=== PATIENT | female | born 1980 | race Two or more races ===

== ENCOUNTER → 2020-10-11 | Outpatient (CLI) | payer BC | END | disposition home or self-care (01) | LOC: LAB 08:35 | PROVIDERS: ATTEND Internal Medicine | DX: R94.7 Abnormal results of other endocrine function studies (principal); R79.82 Elevated C-reactive protein (CRP) | CPT/HCPCS: 36415; 82533; 86141 ==

== ENCOUNTER 2024-06-09 00:42 | Inpatient (IN) | payer BC, OTHER ==
[~2024-06-09] VITALS: Ht 160 cm; Wt 72.0 kg
[2024-06-09] MEDS: ONDANSETRON ODT 4 MG TAB PO ONE (01:53)
[2024-06-09] MEDS: MORPHINE SULFATE INJ 2 MG/ml SYRG IM ONE (01:56)
--- NOTE | 2024-06-09 01:59 | ED.PDOC ---
GI ASSESSMENT HPI Comments 44-YEAR-OLD FEMALE PRESENTS TO ER WITH COMPLAINTS OF RIGHT FLANK PAIN X1 DAY. PATIENT REPORTS THAT SHE WOKE UP WITH SUDDEN ONSET OF RIGHT FLANK PAIN AND NAUSEA/VOMITING AT 11:00 P.M. PRIOR TO ARRIVAL TO ER. SHE RATES HER CURRENT PAIN A 10/10 LOCALIZED TO RIGHT FLANK WITHOUT RADIATION. DENIES USE OF MEDICATIONS FOR CURRENT SYMPTOMS. PATIENT PRESENTS TO ER AMBULATORY ON ARRIVAL, IN MODERATE DISTRESS. 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 Social History Smoker: Non-Smoker Alcohol: Denies ETOH Use Drugs: Denies Drug Use Lives In: Home Constitutional: denies: chills, diaphoresis, fatigue, fever, malaise, sweats, weakness, others EENTM: denies: blurred vision, double vision, ear bleeding, ear discharge, ear drainage, ear pain, ear ringing, eye pain, eye redness, hearing loss, mouth pain, mouth swelling, nasal discharge, nose bleeding, nose congestion, nose pain, photophobia, tearing, throat pain, throat swelling, voice changes, others Respiratory: denies: cough, hemoptysis, orthopnea, SOB at rest, shortness of breath, SOB with excertion, stridor, wheezing, others Cardiovascular: denies: chest pain, dizzy spells, diaphoresis, Dyspnea on exertion, edema, irregular heart beat, left arm pain, lightheadedness, palpitations, PND, syncope, others Gastrointestinal: reports: others ( STATED IN HPI) Genitourinary: denies: abnormal vagina bleeding, burning, dyspareunia, dysuria, flank pain, frequency, hematuria, incontinence, pain, , vagina discharge, urgency, others Neurological: denies: dizziness, fainting, headache, left sided numbness, left sided weakness, numbness, paresthesia, pre-existing deficit, right sided numbness, right sided weakness, seizure, speech problems, tingling, tremors, weakness, others Musculoskeletal: denies: back pain, gout, joint pain, joint swelling, muscle pain, muscle stiffness, neck pain, others Integumetry: denies: bruises, change in color, change in hair/nails, dryness, laceration, lesions, lumps, rash, wounds, others Allergic/Immunocompromised: denies: Difficulty Healing, Frequent Infections, Hives, Itching, others Hematologic/Lymphatic: denies: anemia, blood clots, easy bleeding, easy bruising, swollen glands, others Endocrine: denies: excessive hunger, excessive sweating, excessive thirst, excessive urination, flushing, intolerance to cold, intolerance to heat, unexplained weight gain, unexplained weight loss, others Psychiatric: denies: anxiety, bipolar disorder, depression, hopeless, panic disorder, schizophrenia, sleepless, suicidal, others Physical Exam General Appearance: Moderate Distress (DUE TO RIGHT FLANK PAIN) HEENT: PERRL/EOMI Neck: Full Range of Motion, Non-Tender, Normal Respiratory: Chest Non-Tender, Lungs Clear, No Accessory Muscle Use, No Respiratory Distress, Normal Breath Sounds Cardiovascular: No Murmur, No Gallop, Regular Rate/Rhythm Breast Exam: Deferred Gastrointestinal: Non Tender, No Pulsatile Mass, Soft Genitalia: Deferred Pelvic: Deferred Rectal: Deferred Extremities: Normal capillary refill, Normal range of motion Musculoskeletal : Extremity Location: Back (TTP TO RIGHT FLANK NOTED. NO CVA TENDERNESS NOTED BILATERALLY) Neurologic: Alert, air commodore II-XII nml as Tested, No Motor Deficits, No Sensory Deficits Cerebellar Function: Normal Reflexes: Normal Skin: Dry, Normal Color, Warm Lymphatic: No Adenopathy Was a procedure done? Was a procedure done?: No Sedation Sedation?: No GI differential Dx Differential Diagnosis: Ischemic Bowel, Trauma intraabdominal, UTI, Renal Failure, Other (PYELONEPHRITIS) X-Ray, Labs, Meds, VS Vital Signs Date Time Temp Pulse Resp B/P (MAP) Pulse Ox O2 Delivery O2 Flow Rate FiO2 06/09/24 02:37 61 17 140/85 06/09/24 01:56 72 18 137/99 06/09/24 01:50 97.7 72 18 137/99 (112) 100 97.7 06/09/24 00:47 98.2 89 20 144/96 (112) 100 06/09/24 00:47 98.2 89 20 144/96 (112) 100 98.2 06/09/24 00:47 Room Air Lab Test 06/09/24 02:30 06/09/24 00:50 Range/Units White Blood Count 10.1 4.4-10.8 10^3/uL Red Blood Count 5.27 H 4.0-5.20 10^6/uL Hemoglobin 14.8 12.2-16.2 g/dL Hematocrit 45.0 36.0-46.0 % Mean Corpuscular Volume 85.3 80.0-100.0 fL Mean Corpuscular Hemoglobin 28.1 28.0-32.0 pg Mean Corpuscular Hemoglobin Concent 32.9 32.0-36.0 g/dL Red Cell Distribution Width 15.2 H 11.8-14.3 % Platelet Count 255 140-450 10^3/uL Mean Platelet Volume 8.6 6.9-10.8 fL Neutrophils (%) (Auto) 80.8 H 37.0-80.0 % Lymphocytes (%) (Auto) 10.3 10.0-50.0 % Monocytes (%) (Auto) 7.8 0.0-12.0 % Eosinophils (%) (Auto) 0.7 0.0-7.0 % Basophils (%) (Auto) 0.4 0.0-2.0 % Neutrophils # (Auto) 8.1 1.6-8.6 10 ^3/uL Lymphocytes # (Auto) 1.0 0.4-5.4 10 ^3/uL Monocytes # (Auto) 0.8 0-1.3 10 ^3/uL Eosinophils # (Auto) 0.1 0-0.8 10 ^3/uL Basophils # (Auto) 0 0-0.2 10 ^3/uL Nucleated Red Blood Cells 0.0 % Sodium Level 142 136-145 mmol/L Potassium Level 4.4 3.5-5.1 mmol/L Chloride Level 108 H 98-107 mmol/L Carbon Dioxide Level 24 20-31 mmol/L Anion Gap 10 5-15 Blood Urea Nitrogen 21 9-23 mg/dL Creatinine 0.96 0.550-1.02 mg/dL Glomerular Filtration Rate Calc 74 >90 mL/min BUN/Creatinine Ratio 21.9 H 10.0-20.0 Serum Glucose 113 H 74-106 mg/dL Calcium Level 10.8 H 8.7-10.4 mg/dL Lipase 54 H 12-53 U/L Urine Color Light-yellow Yellow Urine Clarity Clear Clear Urine pH 7.0 5.0-9.0 Urine Specific [place] 1.022 1.001-1.035 Urine Protein Negative Negative Urine Ketones 2+ H Negative Urine Blood Negative Negative /uL Urine Nitrite Negative Negative Urine Bilirubin Negative Negative Urine Urobilinogen Normal Negative mg/dL Urine Leukocyte Esterase Negative Negative /uL Urine RBC 5 0 - 4 /hpf Urine Microscopic WBC 4 0-5 /HPF Urine Squamous Epithelial Cells Few <5 /hpf Urine Bacteria None seen None Seen /hpf Urine Mucus Few None Seen Urine Glucose Normal Normal mg/dL Current Medications Medications (Trade) Dose Ordered Sig/Oscar Route Start Time Stop Time Status Last Admin Morphine Sulfate 4 mg ONCE ONCE IM 06/09/24 02:00 06/09/24 02:01 DC 06/09/24 01:56 Ondansetron HCl (Zofran Po) 4 mg ONCE ONCE PO 06/09/24 02:00 06/09/24 02:01 DC 06/09/24 01:53 Sodium Chloride 1,000 ml @ 1,000 mls/hr Q1H ONCE IV 06/09/24 02:00 06/09/24 02:59 DC 06/09/24 02:00 PATIENT: PERRY NEWBY ACCT: [id number] UNIT: [id number] : 1980 LOC: ER ROOM / BED: / AGE / SEX: 44 / F ADM STATUS: REG ER SERVICE [id number] ORDERING PHYSICIAN: TABBY MARTINO PROCEDURE(s): ABPL - CT AB PEL WO CON-NO ORAL OR IV REASON: RIGHT FLANK PAIN ORDER NUMBER(s): [id number], ACCESSION NUMBER(s): [id number] Exam: CT CT AB PEL WO CON-NO ORAL OR IV History: RIGHT FLANK PAIN Comparison Study: None available at time of dictation. TECHNIQUE: Multidetector CT of the abdomen was performed from lung bases to pubic symphysis. Imaging was performed without IV contrast. Axial, coronal and sagittal multiplanar reformats were obtained from the axial data set by the technologist. Radiation optimization: All CT scans at this facility use at least one of these dose optimization techniques: automated exposure control mA and/or kV adjustment per patient size (includes targeted exams where dose is matched to clinical indication) or iterative reconstruction. Radiation Dose Information: CT Dose: CTDI volume is 17.2 mGy. Dose-length product is 914.57 mGy*cm FINDINGS: Evaluation of solid organs is limited due to lack of intravenous contrast use. Findings: Imaged portions of the lung bases appear unremarkable. Liver, gallbladder, spleen and pancreas appear unremarkable. Postsurgical changes of the stomach are noted. The adrenal glands appear unremarkable. There is edema of the right kidney with severe right hydronephrosis and hydroureter secondary to 2 adjacent calculi measuring 1.1 and 0.3 cm just proximal to the ureterovesicular junction multiple nonobstructing bilateral renal calculi are present measuring up to 0.6 cm in the left upper pole. No left hydronephrosis. There is no evidence of bowel obstruction or focal bowel wall thickening. There is a fat and fluid containing ventral hernia measuring 6.9 cm with 1.9 cm neck. there is intrauterine contraceptive device. No significant free fluid. No free air or adenopathy. 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 IMPRESSION: 1. 2 obstructing calculi in the distal right ureter just proximal to the ureterovesicular junction resulting in severe right hydronephrosis, hydroureter, and renal edema. Multiple additional nonobstructing bilateral renal calculi. 2. 6.9 cm ventral abdominal fat containing hernia. ATED BY: LISA GO MD DICTATED DATE/TIME: 06/09/24307 SIGNED BY: LISA GO MD SIGNED DATE/TIME: 06/09/24307 CC: CBC REVIEWED WITHOUT ANY SIGNIFICANT ABNORMALITIES BMP REVIEWED-GFR 74, CREATININE 0.96 LIPASE REVIEWED -24 URINALYSIS REVIEWED WITHOUT ANY SIGNIFICANT ABNORMALITIES CT ABDOMEN/PELVIS WITHOUT CONTRAST REVIEWED HEP-LOCK IV ORDERED NS 1 L IV ORDERED MORPHINE 4 MG IM ORDERED ZOFRAN 4 MG P.O. ORDERED FLOMAX .4 MG P.O. ORDERED PATIENT REPORTED IMPROVEMENT IN SYMPTOMS AND RESTING COMFORTABLY AT BEDSIDE PATIENT ADMITTED TO HOSPITALIST FOR SEVERE RIGHT-SIDED HYDRONEPHROSIS/RIGHT SIDED RENAL CALCULI Images Reviewed?: Images reviewed and evaluated by me Time of 1ST Reevaluation: 01:52 Reevaluation 1ST: N/A Time of 2ND Reevaluation: 03:30 Reevaluation 2ND: Improved Patient Education/Counseling: Diagnosis, Treatment, Prognosis, Need For Follow Up Family Education/Counseling: No Family Present Departure 1 Departure Time of Disposition: 03:32 Impression: Primary Impression: Hydronephrosis Qualified Codes: N13.30 - Unspecified hydronephrosis Additional Impression: Renal calculus, right Disposition: 09 ADMITTED INPATIENT Condition: Stable Critical Care Note Critical Care Time?: No Stability Stability form required: No Heart Score Heart Score: Heart Score Response (Comments) Value History N/A 0 EKG N/A 0 Age N/A 0 Risk Factors N/A 0 Troponin N/A 0 Total 0 TABBY MARTINO Jun 09, 2024 01:59
[2024-06-09] MEDS: SODIUM CHLORIDE 0.9% 1,000 ML IV ONE (02:00)
[2024-06-09 03:05] LABS: Basophils # (auto) 0 10 ^3/uL (0-0.2); Basophils % (auto) 0.4 % (0.0-2.0); Eosinophils # (auto) 0.1 10 ^3/uL (0-0.8); Eosinophils % (auto) 0.7 % (0.0-7.0); Hemoglobin 14.8 g/dL (12.2-16.2); Lymphocytes % (auto) 10.3 % (10.0-50.0); Mean Corpuscular Hemoglobin 28.1 pg (28.0-32.0); Mean Corpuscular Hgb Conc. 32.9 g/dL (32.0-36.0); Mean Corpuscular Volume 85.3 fL (80.0-100.0); Monocytes # (auto) 0.8 10 ^3/uL (0-1.3); Monocytes % (auto) 7.8 % (0.0-12.0); Neutrophils # (auto) 8.1 10 ^3/uL (1.6-8.6); Neutrophils % (auto) 80.8 % (37.0-80.0); Platelet Count (auto) 255 10^3/uL (140-450); Red Blood Cells 5.27 10^6/uL (4.0-5.20); Red Cell Distribution Width 15.2 % (11.8-14.3); White Blood Cell 10.1 10^3/uL (4.4-10.8)
--- NOTE | 2024-06-09 03:07 | DVH ---
Exam: CT CT AB PEL WO CON-NO ORAL OR IV History: RIGHT FLANK PAIN Comparison Study: None available at time of dictation. TECHNIQUE: Multidetector CT of the abdomen was performed from lung bases to pubic symphysis. Imaging was performed without IV contrast. Axial, coronal and sagittal multiplanar reformats were obtained fr om the axial data set by the technologist. Radiation optimization: All CT scans at this facility use at least one of these dose optimization leidy hniques: automated exposure control mA and/or kV adjustment per patient size (includes targeted exam s where dose is matched to clinical indication) or iterative reconstruction. Radiation Dose Information: CT Dose: CTDI volume is 17.2 mGy. Dose-length product is 914.57 mGy*cm FINDINGS: Evaluation of solid organs is limited due to lack of intravenous contrast use. Findings: Imaged portions of the lung bases appear unremarkable. Liver, gallbladder, spleen and pancreas appear unremarkable. Postsurgical changes of the stomach are noted. The adrenal glands appear unremarkable. There is edema of the right kidney with severe right hydronephrosis and hydroureter secondary to 2 ad jacent calculi measuring 1.1 and 0.3 cm just proximal to the ureterovesicular junction multiple nonob structing bilateral renal calculi are present measuring up to 0.6 cm in the left upper pole. No left hydronephrosis. There is no evidence of bowel obstruction or focal bowel wall thickening. There is a fat and fluid co ntaining ventral hernia measuring 6.9 cm with 1.9 cm neck. there is intrauterine contraceptive device . No significant free fluid. No free air or adenopathy. Congenital fusion of L4-L5 with moderate dege nerative changes within the lumbar spine. IMPRESSION: 1. 2 obstructing calculi in the distal right ureter just proximal to the ureterovesicular junction re sulting in severe right hydronephrosis, hydroureter, and renal edema. Multiple additional nonobstruc ting bilateral renal calculi. 2. 6.9 cm ventral abdominal fat containing hernia.
[2024-06-09 03:18] LABS: Potassium 4.4 mmol/L (3.5-5.1); Sodium 142 mmol/L (136-145)
[2024-06-09 03:19] LABS: Anion Gap 10 (5-15); Carbon Dioxide 24 mmol/L (20-31)
[2024-06-09 03:23] LABS: Calcium 10.8 mg/dL (8.7-10.4); Chloride 108 mmol/L (98-107)
[2024-06-09 03:24] LABS: BUN/Creatinine Ratio 21.9 (10.0-20.0); Blood Urea Nitrogen 21 mg/dL (9-23)
[2024-06-09 03:25] LABS: Glucose 113 mg/dL (74-106); Lipase 54 U/L (12-53)
[2024-06-09 03:42] LABS: Urine Bacteria None Seen /hpf (None Seen)
[2024-06-09] MEDS ORDERED: ONDANSETRON HCL 4 MG/2 ML VIAL IV PRN (04:15)
[2024-06-09] MEDS ORDERED: MORPHINE SULFATE INJ 2 MG/ml SYRG IV PRN (04:15)
[2024-06-09 04:16] LABS: Urine Blood Negative /uL (Negative); Urine Clarity Clear (Clear); Urine Color Light-Yellow (Yellow); Urine Mucus FEW (None Seen); Urine Protein, UAD Negative (Negative); Urine Specific Gravity 1.022 (1.001-1.035); Urine Squamous Epithelial Cell FEW /hpf (<5); Urine Urobilinogen Normal (Negative); Urine WBC 4 /HPF (0-5)
[2024-06-09 04:57] LABS: INR 0.97 (0.9-1.15); Partial Thromboplastin Time 27.1 SEC (24.5-34.5); Prothrombin Time 10.3 sec (9.3-11.8)
[2024-06-09 05:00] LABS: Alanine Aminotransferase 25 U/L (7-40); Albumin 4.7 g/dL (3.2-4.8); Alkaline Phosphatase 95 U/L (46-116); Anion Gap 11 (5-15); Aspartate Aminotransferase 14 U/L (13-40); BUN/Creatinine Ratio 24.2 (10.0-20.0); Blood Urea Nitrogen 23 mg/dL (9-23); Carbon Dioxide 24 mmol/L (20-31); Magnesium 2.1 mg/dL (1.6-2.6); Potassium 4.7 mmol/L (3.5-5.1); Sodium 142 mmol/L (136-145); Total Protein 6.9 g/dL (5.7-8.2)
[2024-06-09 05:01] LABS: Bilirubin, Total 0.4 mg/dL (0.2-1.0)
[2024-06-09] MEDS: SODIUM CHLORIDE 0.9% 1,000 ML IV SCH (05:01)
[2024-06-09] MEDS: TAMSULOSIN HYDROCHLORIDE 0.4 MG CAP PO ONE (05:10)
[2024-06-09 05:16] LABS: Calcium 10.8 mg/dL (8.7-10.4); Chloride 107 mmol/L (98-107); Glucose 111 mg/dL (74-106)
[2024-06-09 05:31] LABS: Amphetamine Screen, Urine Neg (NEGATIVE); Barbiturate Scree,Urine Neg (NEGATIVE); Benzodiazephine Screen, Urine Neg (NEGATIVE); Cocaine Screen, Urine Neg (NEGATIVE); Opiate Scree,Urine Neg (NEGATIVE)
[2024-06-09 05:39] LABS: Cannabinoid Screen, Urine Neg (NEGATIVE); Phencyclidine Screen, Urine Neg (NEGATIVE)
[2024-06-09 05:39] LABS: Blood Alcohol < 3.0 mg/dL (<10)
--- NOTE | 2024-06-09 05:51 | DVHHPRES ---
History of Present Illness Resident Creating Document: [facility]RO [facility]LO [place] RESIDENT History of Present Illness Benito Grover is a 44-year-old female with no significant PMH presented to the ED with the chief complaints of right-sided lower back and right flank pain for 1 day. Patient reported yesterday she woke up at 11:00 pm night with sudden, sharp pain 10/10 intensity in right flank and right lower back which is worsened within an hour associated with nausea and vomiting so decided to visit ED. patient reported she never experienced symptoms like this before. On my assessment patient denies dysuria, fever, abdominal pain, constipation, diarrhea, shortness of breath, and other acute associated symptoms. PMH: Denies PSH: Gastric bypass 2023, scoliosis surgery, Family history: Heart failure and grandfather and nephrolithiasis in father Social history: Lives with the family. Denies smoking, alcohol and other drug abuse Allergies: No known allergies Home medications: Multivitamin Review of Systems Constitutional: No: Fever, Chills, Sweats, Weakness, Malaise, Other Eyes: No: Pain, Vision change, Conjunctivae inflammation, Eyelid inflammation, Other, Redness ENT: No: Ear pain, Ear discharge, Nose pain, Nose discharge, Nose congestion, Mouth pain, Mouth swelling, Throat pain, Throat swelling, Other Respiratory: No: Cough, Dry, Shortness of breath, SOB with excertion, Wheezing, Hemoptysis, Pleuritic Pain, Sputum, Wheezing, Other Cardiovascular: No: Chest Pain, Palpitations, Orthopnea, Paroxysmal Noc. Dyspnea, Edema, Lt Headedness, Other Gastrointestinal: Nausea, Vomiting, Abdominal Pain (RLQ) Genitourinary: Other (Right flank pain) Musculoskeletal: back pain (Right lower back) Skin: No: Rash, Lesions, Jaundice, Bruising, Other Neurological: No: Weakness, Numbness, Incoordination, Change in speech, Conf usion, Seizures, Other Allergies: Coded Allergies: NO KNOWN ALLERGIES (Unverified , 06/09/24) Medications Current Medications Medications Dose Ordered Sig/Oscar Route Start Time Stop Time Status Last Admin Dose Admin Sodium Chloride 10 ml Q8HR IV 06/09/24 06:00 Sodium Chloride 1,000 ml @ 120 mls/hr Q8H20M IV 06/09/24 04:15 06/09/24 05:01 120 MLS/HR Ondansetron HCl 4 mg Q4HP PRN IV 06/09/24 04:15 Enoxaparin Sodium 40 mg DAILY SC 06/09/24 10:00 Acetaminophen 650 mg Q6HP PRN PO 06/09/24 04:15 Morphine Sulfate 2 mg Q4HPRN PRN IV 06/09/24 04:15 Exam Vital Signs Vital Signs Date Time Temp Pulse Resp B/P (MAP) Pulse Ox O2 Delivery O2 Flow Rate FiO2 06/09/24 02:37 61 17 140/85 06/09/24 01:50 97.7 100 97.7 06/09/24 00:47 Room Air Exam Pt is lying on bed General Appearance: Alert, Oriented X3, Cooperative, moderate distress due to pain HEENT: Atraumatic, Mucous membranes moist/pink Respiratory: Clear to auscultation, Normal air movement, No added sounds Cardiovascular: Regular rate, Normal S1, Normal S2, No murmurs Abdominal: Right flank, lateral right lower back and RLQ tenderness. Active bowel sounds, Soft, no distention Extremities: No edema, Normal pulses, No tenderness/swelling Skin: No Significant rash, except past surgical scars Neuro: Normal speech, sensorimotor deficits none Psych/Mental Status: Mental status NL, Mood NL Nurse was there as sharperone during examination Labs/Xrays Labs Test 06/09/24 02:30 06/09/24 00:50 Range/Units White Blood Count 10.1 4.4-10.8 10^3/uL Red Blood Count 5.27 H 4.0-5.20 10^6/uL Hemoglobin 14.8 12.2-16.2 g/dL Hematocrit 45.0 36.0-46.0 % Mean Corpuscular Volume 85.3 80.0-100.0 fL Mean Corpuscular Hemoglobin 28.1 28.0-32.0 pg Mean Corpuscular Hemoglobin Concent 32.9 32.0-36.0 g/dL Red Cell Distribution Width 15.2 H 11.8-14.3 % Platelet Count 255 140-450 10^3/uL Mean Platelet Volume 8.6 6.9-10.8 fL Neutrophils (%) (Auto) 80.8 H 37.0-80.0 % Lymphocytes (%) (Auto) 10.3 10.0-50.0 % Monocytes (%) (Auto) 7.8 0.0-12.0 % Eosinophils (%) (Auto) 0.7 0.0-7.0 % Basophils (%) (Auto) 0.4 0.0-2.0 % Neutrophils # (Auto) 8.1 1.6-8.6 10 ^3/uL Lymphocytes # (Auto) 1.0 0.4-5.4 10 ^3/uL Monocytes # (Auto) 0.8 0-1.3 10 ^3/uL Eosinophils # (Auto) 0.1 0-0.8 10 ^3/uL Basophils # (Auto) 0 0-0.2 10 ^3/uL Nucleated Red Blood Cells 0.0 % Prothrombin Time 10.3 9.3-11.8 sec Prothrombin Time INR 0.97 0.9-1.15 Activated Partial Thromboplast Time 27.1 24.5-34.5 SEC Sodium Level 142 136-145 mmol/L Potassium Level 4.7 3.5-5.1 mmol/L Chloride Level 107 98-107 mmol/L Carbon Dioxide Level 24 20-31 mmol/L Anion Gap 11 5-15 Blood Urea Nitrogen 23 9-23 mg/dL Creatinine 0.95 0.550-1.02 mg/dL Glomerular Filtration Rate Calc 75 >90 mL/min BUN/Creatinine Ratio 24.2 H 10.0-20.0 Serum Glucose 111 H 74-106 mg/dL Hemoglobin A1c 5.4 <5.7 % A1C Lactic Acid Level 1.9 0.4-2.0 mmol/L Calcium Level 10.8 H 8.7-10.4 mg/dL Magnesium Level 2.1 1.6-2.6 mg/dL Total Bilirubin 0.4 0.2-1.0 mg/dL Aspartate Amino Transferase (AST) 14 13-40 U/L Alanine Aminotransferase (ALT) 25 7-40 U/L Alkaline Phosphatase 95 46-116 U/L B-Type Natriuretic Peptide 11.66 0-100 pg/mL Total Protein 6.9 5.7-8.2 g/dL Albumin 4.7 3.2-4.8 g/dL Lipase 54 H 12-53 U/L Plasma/Serum Blood Alcohol < 3.0 <10 mg/dL Urine Color Light-yellow Yellow Urine Clarity Clear Clear Urine pH 7.0 5.0-9.0 Urine Specific [place] 1.022 1.001-1.035 Urine Protein Negative Negative Urine Ketones 2+ H Negative Urine Blood Negative Negative /uL Urine Nitrite Negative Negative Urine Bilirubin Negative Negative Urine Urobilinogen Normal Negative mg/dL Urine Leukocyte Esterase Negative Negative /uL Urine RBC 5 0 - 4 /hpf Urine Microscopic WBC 4 0-5 /HPF Urine Squamous Epithelial Cells Few <5 /hpf Urine Bacteria None seen None Seen /hpf Urine Mucus Few None Seen Urine Glucose Normal Normal mg/dL Urine Opiates Screen Neg NEGATIVE Urine Fentanyl Screen Neg NEGATIVE Urine Barbiturates Screen Neg NEGATIVE Urine Phencyclidine Screen Neg NEGATIVE Urine Amphetamines Screen Neg NEGATIVE Urine Benzodiazepines Screen Neg NEGATIVE Urine Cocaine Screen Neg NEGATIVE Urine Cannabinoids Screen Neg NEGATIVE Assessment/Plan Assessment/Plan # B/L nephrolithiasis # Obstructive right nephro ureteral lithiasis # Severe right hydroureteronephrosis -CT showed to obstructing calculi in the distal right ureter just proximal to the ureterovesicular junction resulting in severe right hydronephrosis, hydroureter, and renal edema. Multiple additional nonobstructing bilateral renal calculi. -currently giving IVF -morphine and Zofran as needed -Flomax -strain all urine -urology consult # abdominal fat containing hernia -evident on CT -outpatient follow up Protonix Lovenox Cardiac diet Goals of care discussed with the patient for more than 29 minutes: Full code status Case discussed with Dr. Shankar, patient and nurse Plan discussed with: Patient My Orders Orders - PEDRO P[facility]LO [place] RESIDENT Procedure Category Date Status Time Admit ADMIT 06/09/24 Transmitted 04:12 Allergies YENNY 06/09/24 In Process 04:12 Code Status CODE 06/09/24 Transmitted 04:12 Sodium Chloride Lock PHA 06/09/24 In Process (Saline Lock Ns) 06:00 Sodium Chloride 0.9% PHA 06/09/24 In Process 04:15 Ondansetron Hcl PHA 06/09/24 In Process (Zofran) 04:15 Enoxaparin Sodium PHA 06/09/24 In Process (Lovenox) 10:00 Cardiac DIET 06/09/24 Transmitted Diet-2gna,Lofat,Lochol Breakfast Condition: Stable YENNY 06/09/24 In Process 04:12 Acetaminophen Tablet PHA 06/09/24 In Process (Tylenol Tablet) 04:15 Morphine Sulfate PHA 3/5/25 In Process Injection 04:15 Covid19 Antigen Rubi LAB 06/09/24 Logged Rapid Influenza A&B LAB 06/09/24 Logged 04:12 Thyroid Stimulating LAB 06/09/24 In Process Hormone 04:12 Strain All Urine For YENNY 06/09/24 In Process Stones 04:12 * Urology Consult CONS 06/09/24 Transmitted 04:12 Date of Service: Jun 09, 2024 Billing Provider: DIANNA SHANKAR MD Common Visit Codes: [id number] INP/OBS CARE (HIGH) PEDRO PABLO [place] RESIDENT Jun 09, 2024 05:51 DIANNA SHANKAR MD Jun 09, 2024 18:37
[2024-06-09] MEDS: SODIUM CHLOR 0.9% PF (SALINE LOCK) 10ML VIAL/SYR IV SCH (06:29)
[2024-06-09] MEDS: ACETAMINOPHEN 325 MG TAB PO PRN (09:41)
[2024-06-09] MEDS: ENOXAPARIN SOD 40 MG/0.4 ML SYRINGE SC SCH (09:41)
[2024-06-09 10:35] LABS: COVID19 ANTIGEN SOFIA FIA NEGATIVE (NEGATIVE); Rapid Influenza A Negative (Negative); Rapid Influenza B Negative (Negative)
[2024-06-09] MEDS ORDERED: ACET-1079 PO (13:50)
--- NOTE | 2024-06-09 13:54 | DVHDS2 ---
Discharge Summary Date of Admission Jun 09, 2024 at 04:12 Date of Discharge: Jun 09, 2024 Labs/Diagnostic Data: Laboratory Results Test 06/09/24 09:25 06/09/24 02:30 06/09/24 00:50 Influenza Type A Antigen Negative (Negative) Influenza Type B Antigen Negative (Negative) SARS-CoV-2 Antigen (Rapid) Negative (NEGATIVE) White Blood Count 10.1 10^3/uL (4.4-10.8) Red Blood Count 5.27 10^6/uL (4.0-5.20) Hemoglobin 14.8 g/dL (12.2-16.2) Hematocrit 45.0 % (36.0-46.0) Mean Corpuscular Volume 85.3 fL (80.0-100.0) Mean Corpuscular Hemoglobin 28.1 pg (28.0-32.0) Mean Corpuscular Hemoglobin Concent 32.9 g/dL (32.0-36.0) Red Cell Distribution Width 15.2 % (11.8-14.3) Platelet Count 255 10^3/uL (140-450) Mean Platelet Volume 8.6 fL (6.9-10.8) Neutrophils (%) (Auto) 80.8 % (37.0-80.0) Lymphocytes (%) (Auto) 10.3 % (10.0-50.0) Monocytes (%) (Auto) 7.8 % (0.0-12.0) Eosinophils (%) (Auto) 0.7 % (0.0-7.0) Basophils (%) (Auto) 0.4 % (0.0-2.0) Neutrophils # (Auto) 8.1 10 ^3/uL (1.6-8.6) Lymphocytes # (Auto) 1.0 10 ^3/uL (0.4-5.4) Monocytes # (Auto) 0.8 10 ^3/uL (0-1.3) Eosinophils # (Auto) 0.1 10 ^3/uL (0-0.8) Basophils # (Auto) 0 10 ^3/uL (0-0.2) Nucleated Red Blood Cells 0.0 % Prothrombin Time 10.3 sec (9.3-11.8) Prothrombin Time INR 0.97 (0.9-1.15) Activated Partial Thromboplast Time 27.1 SEC (24.5-34.5) Sodium Level 142 mmol/L (136-145) Potassium Level 4.7 mmol/L (3.5-5.1) Chloride Level 107 mmol/L (98-107) Carbon Dioxide Level 24 mmol/L (20-31) Anion Gap 11 (5-15) Blood Urea Nitrogen 23 mg/dL (9-23) Creatinine 0.95 mg/dL (0.550-1.02) Glomerular Filtration Rate Calc 75 mL/min (>90) BUN/Creatinine Ratio 24.2 (10.0-20.0) Serum Glucose 111 mg/dL (74-106) Hemoglobin A1c 5.4 % A1C (<5.7) Lactic Acid Level 1.9 mmol/L (0.4-2.0) Calcium Level 10.8 mg/dL (8.7-10.4) Magnesium Level 2.1 mg/dL (1.6-2.6) Total Bilirubin 0.4 mg/dL (0.2-1.0) Aspartate Amino Transferase (AST) 14 U/L (13-40) Alanine Aminotransferase (ALT) 25 U/L (7-40) Alkaline Phosphatase 95 U/L (46-116) B-Type Natriuretic Peptide 11.66 pg/mL (0-100) Total Protein 6.9 g/dL (5.7-8.2) Albumin 4.7 g/dL (3.2-4.8) Lipase 54 U/L (12-53) Thyroid Stimulating Hormone (TSH) 1.64 uIU/mL (0.55-4.78) Plasma/Serum Blood Alcohol < 3.0 mg/dL (<10) Urine Color Light-yellow (Yellow) Urine Clarity Clear (Clear) Urine pH 7.0 (5.0-9.0) Urine Specific [place] 1.022 (1.001-1.035) Urine Protein Negative (Negative) Urine Ketones 2+ (Negative) Urine Blood Negative /uL (Negative) Urine Nitrite Negative (Negative) Urine Bilirubin Negative (Negative) Urine Urobilinogen Normal mg/dL (Negative) Urine Leukocyte Esterase Negative /uL (Negative) Urine RBC 5 /hpf (0 - 4) Urine Microscopic WBC 4 /HPF (0-5) Urine Squamous Epithelial Cells Few /hpf (<5) Urine Bacteria None seen /hpf (None Seen) Urine Mucus Few (None Seen) Urine Glucose Normal mg/dL (Normal) Urine Opiates Screen Neg (NEGATIVE) Urine Fentanyl Screen Neg (NEGATIVE) Urine Barbiturates Screen Neg (NEGATIVE) Urine Phencyclidine Screen Neg (NEGATIVE) Urine Amphetamines Screen Neg (NEGATIVE) Urine Benzodiazepines Screen Neg (NEGATIVE) Urine Cocaine Screen Neg (NEGATIVE) Urine Cannabinoids Screen Neg (NEGATIVE) Other Laboratory Tests 06/09/24 02:30 Brief Hx & Hospital Course: 44 yo F with prior hx of nephrolithiasis presented to ED with back pain. CT showed obstructing uretheral stone with hydronephrosis. discussed with urology, for nephrostomy tube placement and outpatient treatment for the stone. IR consulted for nephrostomy tube, stable to md home and follow up with urology as outpatient. Condition at Discharge: Good Final Diagnosis/Problems List right uretheral stone right hydronephrosis s/p nephrostomy tube placement Discharge Disposition: Home Discharge Instruct/Medications Follow Up/Referral: urology Medications: tylenol levofloxacin 55 Discharge Statement: "Patient was advised to return to the ER or call 911 if any headaches, dizziness, shortness of breath, chest pain, abdominal pain, bleeding, fevers, or worsening of medical condition. Patient was counseled about treatment plan, medications, possible side effects, patientverbalized understanding. All questions were answered to the best of my ability. This discharge took greater then 30 minutes in planning, reviewing documentation, counseling the patient, and discussing with other team members." ASSESSMENT ASSESSMENT Assessment Date of Service: Jun 09, 2024 Billing Provider: NASIM BOX MD Common Visit Codes: 30593-[facility]/OBS DISCH DAY >30min NASIM BOX MD Jun 09, 2024 13:54
[2024-06-09] MEDS ORDERED: CEPH250C PO (13:55)
[2024-06-09] MEDS: MIDAZOLAM HCL 2MG/2ML 2ml VIAL (1mg/ml) ONE (14:12)
[2024-06-09] MEDS: fentaNYL CITRATE 100 MCG/2 ML VL ONE (14:12)
[2024-06-09] MEDS: LIDOCAINE 2%HCL (LOCAL ANESTH.) INJ 20ML MDV ONE (14:12)
[2024-06-09] MEDS: ceFAZolin 1GM/50ML 0 ML IV ONE (14:20)
[2024-06-09] MEDS: cefTRIAXone 1GM/50ML D5W 50 ML IV ONE (14:25)
[2024-06-09] MEDS ORDERED: TAMS-35 PO (14:34)
[2024-06-09] MEDS ORDERED: IBU600T PO (14:35)
[2024-06-09 14:58] VITALS: BP 120/72; PULSE 71; RESP 13; O2SAT 100
[2024-06-09 15:13] VITALS: BP 134/85; PULSE 67; RESP 13; O2SAT 100
--- NOTE | 2024-06-09 15:13 | DVH ---
US US GUIDANCE FOR NEEDLE PLACEME, HISTORY: Obstructive uropathy from a kidney stone with hydronephrosis. PROCEDURE: Informed consent was obtained. The patient was placed on the fluoroscopic table in a prone position and IV sedation administered. The right flank was prepped with chlorhexidine which was allo wed to dry and draped in the usual sterile fashion. 1 gram of ceftriaxone was given. Time out was per formed. and the soft tissues infiltrated with 1% lidocaine local anesthetic. Utilizing ultrasound mariam dance, a 21 gauge Chiba needle was advanced from a posterolateral approach into an lower pole calyx, and a small amount of contrast was injected under fluoroscopy to confirm positioning. Over a mandril wire, exchange was made to a non-vascular access set, through which was advanced an 0.035 wire. Follo wing serial dilation, an 8.5 [place] multipurpose nephrostomy catheter was placed with tip pigtailed w ithin the renal pelvis. Position was confirmed with antegrade nephrostogram. The catheter was secured in place and connected to gravity drainage. A sterile dressing was applied. No immediate complicatio n was identified. DAP 134 FLUOROSCOPY TIME: 1.2 minutes. CONTRAST USED: 10 mL Isovue 300. SEDATION: Dr. Henrik Lynch was personally responsible for the administration of moderate sedation during the procedure performed, including the use of an independent trained observer who had no other duties during the procedure. The drugs utilized were IV fentanyl and versed (see nursing log for details). The total time of supervision by the attending physician was approximately 30 minutes. FINDINGS: Dilated right renal collecting system [involving the calyces/renal pelvis/ureter to the lev el of the distal ureter. Contrast obstructed at the distal ureter New 8.5 [place] nephrostomy tube via a posterior lower pole calyceal access, with loop coiled within the renal pelvis. IMPRESSION: right hydronephrosis due to obstructive distal ureteral kidney stone, status post placement of 8.5 F rench right percutaneous nephrostomy catheter. PLAN: Routine catheter care.
[2024-06-09 15:28] VITALS: BP 123/83; PULSE 64; PULSE 67; RESP 11; RESP 12; TEMP 97.5; O2SAT 100; O2SAT 97
[2024-06-09 15:43] VITALS: BP 122/82; PULSE 70; RESP 16; O2SAT 100
[2024-06-09 15:58] VITALS: BP 118/80; PULSE 71; RESP 11; O2SAT 100
[2024-06-09 16:13] VITALS: BP 117/70; PULSE 80; RESP 14; O2SAT 100
== END 2024-06-09 16:34 | disposition home or self-care (01) | DRG 694 ==
LOC: ER 00:42 → OVERFLOW 04:12
PROVIDERS: ADMIT Student in an Organized Health Care Education/Training Program; ATTEND Student in an Organized Health Care Education/Training Program
PROC: 0T9330Z Drainage of Right Kidney Pelvis with Drainage Device, Percutaneous Approach (ICD-10-PCS; principal; 2024-06-09)
DX: N13.2 Hydronephrosis with renal and ureteral calculous obstruction (principal); Z20.822 Contact with and (suspected) exposure to COVID-19; K46.9 Unspecified abdominal hernia without obstruction or gangrene; Z87.442 Personal history of urinary calculi; Z98.84 Bariatric surgery status; Z98.891 History of uterine scar from previous surgery; Z82.49 Family history of ischemic heart disease and other diseases of the circulatory system
CPT/HCPCS: 36415; 50432; 74176; 74425; 76942; 80048; 80053; 80307; 80320; 81001; 83036; 83605; 83690; 83735; 83880; 84443; 85025; 85610; 85730; 87426; 87804; 96360; 96372; 99152; C1894; G0378; J2250; Q0162